=== PATIENT | female | born 1955 | race Caucasian/White ===

== ENCOUNTER 2017-02-04 13:53 | Outpatient (CLI) | payer MEDICARE ==
--- NOTE | 2017-02-08 17:04 | Mammography Report ---
DIGITAL SCREENING MAMMOGRAM: 02/04/2017 CLINICAL INDICATION: A 61-year-old nulliparous patient with family history of breast cancer, for scre ening. COMPARISON: 12/2014, 11/2013. TECHNIQUE: Routine CC and MLO projections were obtained of the breasts. FINDINGS: The breasts again demonstrate scattered fibroglandular densities bilaterally. There is a p ossible developing density in the right lower outer central breast. Further evaluation with spot comp ression views and possible ultrasound is recommended. Punctate, typically benign calcifications are p resent. No mammographically suspicious findings are identified in the left breast. IMPRESSION: INCOMPLETE EXAMINATION. RECOMMENDATION: ADDITIONAL EVALUATION OF THE RIGHT BREAST ABOVE. BIRADS CATEGORY 0-INCOMPLETE. STANDARD QUALIFYING STATEMENTS 1. This examination was reviewed with the aid of Computer-Aided Detection (CAD). 2. A negative or benign imaging report should not delay biopsy if clinically suspicious findings are present. Consider surgical consultation if warranted. More than 5% of cancers are not identified by i maging. 3. Dense breasts may obscure an underlying neoplasm. JOB #: [id number] EXT JOB #:[id number]
== END 2017-02-04 13:54 | disposition home or self-care (01) ==
LOC: DI.S 13:53
PROVIDERS: ATTEND Nurse Practitioner Family
DX: Z12.31 Encounter for screening mammogram for malignant neoplasm of breast (principal); R92.8 Other abnormal and inconclusive findings on diagnostic imaging of breast; Z80.3 Family history of malignant neoplasm of breast
CPT/HCPCS: 77067

== ENCOUNTER 2017-03-23 13:05 | Outpatient (CLI) | payer MEDICARE ==
--- NOTE | 2017-03-24 09:08 | DEXA Report ---
DEXA SCAN: 03/23/2017 CLINICAL INDICATION: Postmenopausal. TECHNIQUE: Dual energy x-ray absorptiometry (DXA) was performed on a [employer] system. Regions measured are the AP spine, femoral neck, and, if needed, forearm. COMPARISON: None. In accordance with the International Society for Clinical Densitometry (ISCD) guidelines, data from previous exams may be reanalyzed using current recommendations and techniques. This is done to allow a more accurate basis for comparison with the current study. FINDINGS: The data for the lumbar spine is as follows: REGION BMD (g/cm/cm) T-SCORE Z-SCORE L1 0.934 -1.6 0.0 L2 1.082 -1.0 0.6 L3 1.150 -0.4 1.2 L4 1.019 -1.5 0.1 TOTAL 1.048 -1.1 0.5 NOTE: All evaluable vertebrae are used for classification. The data for the hip is as follows: REGION BMD (g/cm/cm) T-SCORE Z-SCORE Neck 0.591 -3.2 -1.7 TOTAL 0.586 -3.3 -2.1 NOTE: The femoral neck or total proximal femur, whichever is lowest, is used for classification. IMPRESSION: THE WHO CLASSIFICATION BASED ON THE INTERNATIONAL REFERENCE STANDARD IS OSTEOPOROSIS. THE FRACTURE RISK IS HIGH. RECOMMENDATION: Patients with diagnosis of osteoporosis or osteopenia should have regular bone mineral density assessment. For those eligible for Medicare, routine testing is allowed once every 2 years. Testing frequency can be increased for patients who have rapidly progressing disease or for those who are receiving medical therapy to restore bone mass. COMMENT: World Health Organization (WHO) definitions for osteoporosis and osteopenia: NORMAL BMD: T-score at -1.0 or higher, fracture risk is low. OSTEOPENIA BMD: T-score between -1.0 and -2.5, fracture risk is increased. OSTEOPOROSIS BMD: T-score at -2.5 or lower, fracture risk high. National Osteoporosis Foundation recommends: 1. Obtain adequate dietary calcium (at least 1200 mg per day) and vitamin D (400 -800 international units per day). 2. Participate, as appropriate, in regular weightbearing and muscle- strengthening exercise. 3. Avoid tobacco use and reduce alcohol and caffeine intake. 4. For more detailed information see the website at www.NOF.org. MTDD
== END 2017-03-23 13:06 | disposition home or self-care (01) ==
LOC: DI 13:05
PROVIDERS: ATTEND Nurse Practitioner Family
DX: Z13.820 Encounter for screening for osteoporosis (principal); M81.0 Age-related osteoporosis without current pathological fracture
CPT/HCPCS: 77080

== ENCOUNTER 2017-03-23 13:24 | Outpatient (CLI) | payer MEDICARE ==
--- NOTE | 2017-03-23 16:52 | Mammography Report ---
DIGITAL DIAGNOSTIC RIGHT MAMMOGRAM: 03/23/2017 CLINICAL INDICATION: Possible developing density right lower outer breast. TECHNIQUE: Right true lateral and spot compression views. COMPARISON: 02/04/2017, 01/03/2015, 12/13/2013. The right breast again demonstrates scattered fibroglandular densities. The density in question diss ipates evenly on additional compression. No underlying mass or architectural distortion is identifie d. IMPRESSION: NEGATIVE EXAMINATION. RECOMMENDATION: ROUTINE ANNUAL SCREENING UNLESS OTHERWISE CLINICALLY INDICATED. BIRADS CATEGORY: 1, NEGATIVE. STANDARD QUALIFYING STATEMENTS 1. This examination was reviewed with the aid of Computed-Aided Detection (CAD). 2. A negative or benign imaging report should not delay biopsy if clinically suspicious findings are present. Consider surgical consultation if warranted. More than 5% of cancers are not identified b y imaging. 3. Dense breasts may obscure an underlying neoplasm. JOB #: [id number] EXT JOB #:
== END 2017-03-23 13:25 | disposition home or self-care (01) ==
LOC: DI 13:24
PROVIDERS: ATTEND Nurse Practitioner Family
DX: Z12.31 Encounter for screening mammogram for malignant neoplasm of breast (principal); Z13.820 Encounter for screening for osteoporosis; M81.0 Age-related osteoporosis without current pathological fracture
CPT/HCPCS: 77080; G0206

== ENCOUNTER 2017-03-31 14:11 | Outpatient (CLI) | payer MEDICARE ==
--- NOTE | 2017-04-01 09:11 | XRAY Report ---
THREE VIEW LUMBAR SPINE: 03/31/2017 CLINICAL INDICATION: Low back pain. FINDINGS: AP, lateral, and coned down views of the lumbar spine are compared to previous films of . Degenerative changes are stable. There is no evidence of interval fracture or subluxation. The bowel gas pattern appears unremarkable. IMPRESSION: STABLE MODERATE DEGENERATIVE CHANGES. NO EVIDENCE OF INTERVAL FRACTURE. JOB #: [id number] EXT JOB #:[id number]
== END 2017-03-31 14:12 | disposition home or self-care (01) ==
LOC: DI.S 14:11
PROVIDERS: ATTEND Nurse Practitioner Family
DX: M54.5 Low back pain (principal)
CPT/HCPCS: 72100

== ENCOUNTER 2019-07-20 01:34 | Outpatient (CLI) | payer MEDICARE | END 2019-07-20 01:35 | disposition EMS.NT | LOC: EMS 01:34 | PROVIDERS: ATTEND Surgery | DX: R42 Dizziness and giddiness (principal); F41.9 Anxiety disorder, unspecified; R06.02 Shortness of breath ==

== ENCOUNTER 2019-09-05 15:25 | Outpatient (CLI) | payer MEDICARE ==
[2019-09-05 17:55] LABS: ALBUMIN/GLOBULIN RATIO 1.3 (1.0-2.2); BILIRUBIN,DIRECT 0.3 mg/dL (0.1-0.5); BILIRUBIN,TOTAL 2.1 mg/dL (0.2-1.0); CALCIUM 10.5 mg/dL (8.5-10.3); CREATININE 0.9 mg/dL (0.4-1.0); TOTAL PROTEIN 8.9 g/dL (6.7-8.2)
== END 2019-09-05 15:26 | disposition home or self-care (01) ==
LOC: LAB.S 15:25
PROVIDERS: ATTEND Nurse Practitioner Family
DX: R74.8 Abnormal levels of other serum enzymes (principal); R17 Unspecified jaundice
CPT/HCPCS: 36415; 80053; 82247; 82248

== ENCOUNTER 2020-05-28 16:12 | Outpatient (CLI) | payer MEDICARE ==
--- NOTE | 2020-05-29 13:53 | Mammography Report ---
BILATERAL DIGITAL SCREENING MAMMOGRAM 3D/2D: 05/28/2020 CLINICAL: Routine screening. Comparison is made to exams dated: 03/23/2017 mammogram and 02/04/2017 mammogram - [facility]. There are scattered fibroglandular elements in both breasts. No significant masses, calcifications, or other findings are seen in either breast. There has been no significant interval change. IMPRESSION: NEGATIVE There is no mammographic evidence of malignancy. A 1 year screening mammogram is recommended. This exam was interpreted at Station ID: [id number]. NOTE: For mammograms, a report in lay terms will be sent to the patient. Approximately 15% of breast malignancies will not be visualized mammographically. In the management of a palpable breast mass, a negative mammogram must not discourage biopsy of a clinically suspicious lesion. Electronically Signed By: Alfred antoine/walt:05/28/2020 17:35:01 ACR BI-RADS Category 1: Negative 3341F PARENCHYMAL PATTERN: (A) - The breast(s) demonstrate(s) scattered fibroglandular densities. BI-RADS CATEGORY: (1) - 1 RECOMMENDATION: (ANNUAL) - Recommend routine annual screening mammography. [id number] 1 year screening LATERALITY: (B)
== END 2020-05-28 16:13 | disposition home or self-care (01) ==
LOC: DI 16:12
PROVIDERS: ATTEND Nurse Practitioner Family
DX: Z12.31 Encounter for screening mammogram for malignant neoplasm of breast (principal)
CPT/HCPCS: 77063; 77067

== ENCOUNTER 2022-05-20 13:43 | Outpatient (CLI) | payer MEDICARE ==
--- NOTE | 2022-05-22 15:18 | Mammography Report ---
BILATERAL DIGITAL SCREENING MAMMOGRAM 3D/2D: 05/20/2022 CLINICAL: Routine screening. Comparison is made to exams dated: 05/28/2020 mammogram, 03/23/2017 mammogram, 02/04/2017 mammogram, mammogram, and 12/13/2013 mammogram - [facility]. There are scattered areas of fibroglandular density in both breasts (category b / 25%-50% glandular t issue). No significant masses, calcifications, or other findings are seen in either breast. There has been no significant interval change. IMPRESSION: NEGATIVE There is no mammographic evidence of malignancy. A 1 year screening mammogram is recommended. Based on the Tyrer Cuzick model (a risk assessment model) the patients lifetime risk is 13.6% and he r 10 year risk is 6.9%. According to the ACR, ACS, and NCCN guidelines, an annual breast MRI exam mario ng with mammogram is recommended if the patients lifetime risk is 20% or greater. This exam was interpreted at Station ID: [id number]. NOTE: For mammograms, a report in lay terms will be sent to the patient. Approximately 15% of breast malignancies will not be visualized mammographically. In the management of a palpable breast mass, a negative mammogram must not discourage biopsy of a clinically suspicious lesion. Electronically Signed By: Kwaku stephens/walt:05/21/2022 16:33:30 ACR BI-RADS Category 1: Negative 3341F PARENCHYMAL PATTERN: (A) - The breast(s) demonstrate(s) scattered fibroglandular densities. BI-RADS CATEGORY: (1) - 1 RECOMMENDATION: (ANNUAL) - Recommend routine annual screening mammography. [id number] 1 year screening LATERALITY: (B)
== END 2022-05-20 13:44 | disposition home or self-care (01) ==
LOC: DI 13:43
PROVIDERS: ATTEND Nurse Practitioner Family
DX: Z12.31 Encounter for screening mammogram for malignant neoplasm of breast (principal)

== ENCOUNTER 2022-05-20 13:45 | Outpatient (CLI) | payer MEDICARE ==
--- NOTE | 2022-05-20 16:33 | DEXA Report ---
PROCEDURE: Dexa Spine and/or Hip INDICATIONS: OSTEOPOROSIS TECHNIQUE: Dual energy x-ray absorptiometry (DXA) was performed on a [employer] System. Regions measur ed are the AP Spine, femoral neck, and if needed forearm. COMPARISON: DEXA 03/23/2017. FINDINGS: Lumbar Spine: Bone Mineral Density 1.061 g/cm/cm, T score -1.0, normal Left Hip: Bone Mineral Density 0.608 g/cm/cm, T score -3.2, osteoporosis Left Femoral Neck: Bone Mineral Density 0.658 g/cm/cm, T score -2.7, osteoporosis Comparison the prior exam cannot be performed. Overall findings are similar the prior DEXA from 2017. (T score greater or equal to -1.0: NORMAL) (T score from -1.1 to -2.4: OSTEOPENIA) (T score less than or equal to -2.5 to: OSTEOPOROSIS) Impression: Osteoporosis at the left hip. Patients with diagnosis of osteoporosis or osteopenia should have regular bone mineral density assess ment. For those eligible for Medicare, routine testing is allowed once every 2 years. Testing frequ ency can be increased for patients who have rapidly progressing disease or for those who are receivin g medical therapy to restore bone mass. Reviewed by: Bj Mcintyre MD on 05/20/2022 3:31 PM [facility] Approved by: Bj Mcintyre MD on 05/20/2022 3:31 PM [facility] Station ID: [id number]
== END 2022-05-20 13:46 | disposition home or self-care (01) ==
LOC: DI 13:45
PROVIDERS: ATTEND Nurse Practitioner Family
DX: M81.0 Age-related osteoporosis without current pathological fracture (principal)

== ENCOUNTER 2023-07-21 07:13 | Outpatient (CLI) | payer MEDICARE | END 2023-07-21 07:14 | disposition critical access hospital (66) | LOC: EMS 07:13 | DX: R07.9 Chest pain, unspecified (principal); R25.1 Tremor, unspecified; R06.4 Hyperventilation | CPT/HCPCS: A0425; A0427 ==

== ENCOUNTER 2023-07-21 07:45 | Emergency (ER) | payer MEDICARE ==
--- NOTE | 2023-07-21 07:46 | ED Physician Documentation ---
PD HPI DYSPNEA - Stated complaint Stated Complaint: CP - History obtained from History obtained from: Patient - History of Present Illness Timing - onset: Today Timing - duration: Minutes, Hours (had feeling of anxiety and chest tightness with heart feeling going fast that lasted for 1/2 hour to an our. Called EMS. They noted normal rhythm and rate. Pt stated was starting to feel better then but still anxious and shaky.) Timing - details: Abrupt onset, Now resolved (though still having feeling of shakiness and anxious. But not feeling the chest tightness nor heart racing feelings.) Inciting event(s): No: URI Associated symptoms: No: Fever, Cough, Wheezing Similar symptoms before: Has not had sx before Recently seen: Not recently seen Review of Systems Constitutional: denies: Fever, Chills Nose: denies: Rhinorrhea / runny nose, Congestion Throat: denies: Sore throat Cardiac: reports: Chest pain / pressure, Palpitations (feeling heart rate fast this morning. Has had feeling of skips/palpitations occasional otherwise.). denies: Pedal edema, Calf pain Respiratory: denies: Cough PD PAST MEDICAL HISTORY - Past Medical History Cardiovascular: None Respiratory: None Endocrine/Autoimmune: None - Allergies Allergies/Adverse Reactions: Allergies Allergy/AdvReac Type Severity Reaction Status Date / Time aspirin AdvReac Unknown Verified 07/21/23 07:54 Penicillins AdvReac Unknown Verified 07/21/23 07:54 - Living Situation Living Situation: reports: Alone Living Arrangement: reports: At home - Social History Does the pt smoke?: No Does the pt drink ETOH?: No Does the pt have substance abuse?: No PD ED PE NORMAL - Vitals Vital signs reviewed: Yes - General General: Alert and oriented X 3, Well developed/nourished, Other (appears very anxious and tremorous/shaky that can stop when she is distracted. ) - Neck Neck: Supple, no meningeal sign, No adenopathy - Cardiac Cardiac: RRR, No murmur - Respiratory Respiratory: No respiratory distress, Clear bilaterally - Abdomen Abdomen: Soft, Non tender - Derm Derm: Normal color, Warm and dry - Extremities Extremities: No edema, No calf tenderness / cord - Neuro Neuro: Alert and oriented X 3, No motor deficit, Normal speech Results - Vitals Vitals: Oxygen O2 Source Room air - EKG (time done) 08:06 EKG releavant findings:: EKG personally interpreted by author of this note. Relevant findings are: Rate: Rate (enter#) (87) Rhythm: NSR, Other (occasional PACs.) Clark: Normal Intervals: Normal ID QRS: Normal Ischemia: Normal ST segments. No: ST elevation c/w ischemia, ST depression Compare to prior EKG: Old EKG unavailable - Labs Labs: Laboratory Tests 07/21/23 07/21/23 07/21/23 08:18 08:18 08:18 WBC 5.1 RBC 3.55 L Hgb 11.4 L Hct 34.2 L MCV 96.3 MCH 32.1 H MCHC 33.3 RDW 13.0 Plt Count 184 MPV 9.1 Neut # (Auto) 3.6 Lymph # (Auto) 1.1 L [place] # (Auto) 0.3 Eos # (Auto) 0.1 Baso # (Auto) 0.1 Absolute Nucleated RBC 0.00 Nucleated RBC % 0.0 Sodium 140 Potassium 3.8 Chloride 106 Carbon Dioxide 26 Anion Gap 8.0 BUN 16 Creatinine 1.0 Estimated GFR (MDRD) 55 L Glucose 118 H Calcium 10.0 Magnesium 1.7 Total Bilirubin 1.2 H AST 32 ALT 34 Alkaline Phosphatase 81 Troponin I High Sens 4.7 B-Natriuretic Peptide 47 Total Protein 7.5 Albumin 4.5 Globulin 3.0 Albumin/Globulin Ratio 1.5 Lipase 85 H TSH 3.06 - Rads (name of study) chest xray Relevant Findings:: Prelim report reviewed (no acute process), EMP independent interpretation of test PD Medical Decision Making - ED course Complexity details: reviewed results, considered differential (had feeling of fast heart rate. Is normal now but does not exclude irregular prior. EMS noted regular. Can also be anxiety. Does not seem PE, pneumonia, PTX. Labs exclude IN/CHF. CXR clear. ), d/w patient Departure - Departure Disposition: 01 Home, Self Care Clinical Impression: Heart rate fast Condition: Stable Record reviewed to determine appropriate education?: Yes Instructions: ED Palpitations Comments: Your heart rhythm is normal here. It is unclear what irregularity was happening before, skipping or extra beats or fast rhythm. As you suggest, it probably does relate to hydration and fatigue and lack of sleep. Try to stay well-hydrated. We did check basic blood test here of your electrolytes, blood sugar, kidney function and these are in the normal range. Your thyroid screen is normal as well. On chest x-ray and blood tests as well as your EKG, there is no signs of heart attack or heart failure. Follow-up with your primary care or clinic if you have repeated episodes similar to this. If so we can set up a portable wearable monitor that records your heart rhythm over the course of the week to see what these episodes are. Given that much of the time symptoms like this are solitary and not recurrent, I would just see if you have any more episodes before embarking any more testing. Avoid stimulants such as caffeine. Again stay well-hydrated. Forms: PCP List Discharge Date/Time: 07/21/23 09:54
[2023-07-21 08:23] LABS: BASOPHILS # (AUTO) 0.1 10^3/uL (0.0-0.1); EOSINOPHILS # (AUTO) 0.1 10^3/uL (0.0-0.7); EOSINOPHILS % (AUTO) 1.8 %; HCT - HEMATOCRIT 34.2 % (37.0-47.0); HGB - HEMOGLOBIN 11.4 g/dL (12.0-16.0); LYMPHOCYTES # (AUTO) 1.1 10^3/uL (1.5-3.5); LYMPHOCYTES % (AUTO) 20.5 %; MEAN CORPUSCULAR HEMOGLOBIN 32.1 pg (27.0-31.0); MEAN CORPUSCULAR HGB CONC 33.3 g/dL (32.0-36.0); MEAN CORPUSCULAR VOLUME 96.3 fL (81.0-99.0); MEAN PLATELET VOLUME 9.1 fL (7.9-10.8); MONOCYTES # (AUTO) 0.3 10^3/uL (0.0-1.0); MONOCYTES % (AUTO) 5.9 %; NEUTROPHILS # (AUTO) 3.6 10^3/uL (1.5-6.6); NEUTROPHILS % (AUTO) 70.4 %; PLT - PLATELET COUNT 184 10^3/uL (130-450); RED BLOOD COUNT 3.55 10^6/uL (4.20-5.40); WHITE BLOOD COUNT 5.1 x10^3/uL (4.8-10.8)
--- NOTE | 2023-07-21 08:37 | XRAY Report ---
PROCEDURE: Chest 1V INDICATIONS: chest pain TECHNIQUE: One view of the chest was acquired. COMPARISON: None. FINDINGS: Surgical changes and devices: None. Lungs and pleura: No pleural effusions or pneumothorax. Lungs are clear. Mediastinum: Mediastinal contours appear normal. Heart size is mildly prominent. Bones and chest wall: No suspicious bony lesions. Overlying soft tissues appear unremarkable. IMPRESSION: No acute cardiopulmonary process. Reviewed by: Tamika Soliman MD on 07/21/2023 8:35 AM [facility] Approved by: Tamika Soliman MD on 07/21/2023 8:35 AM [facility] Station ID: [id number]
[2023-07-21 08:44] VITALS: BP 136/84; O2SAT 100
[2023-07-21 08:46] LABS: ALBUMIN 4.5 g/dL (3.2-5.5); ALBUMIN/GLOBULIN RATIO 1.5 (1.0-2.2); BILIRUBIN,TOTAL 1.2 mg/dL (0.2-1.0); MAGNESIUM 1.7 mg/dL (1.7-2.3); POTASSIUM 3.8 mmol/L (3.5-4.5); TOTAL PROTEIN 7.5 g/dL (6.4-8.9)
[2023-07-21 08:51] LABS: TROPONIN I HIGH SENSITIVITY 4.7 ng/L (2.3-14.8)
[2023-07-21 09:00] LABS: THYROID STIMULATING HORMONE 3.06 uIU/mL (0.34-5.60)
[2023-07-21] MEDS ORDERED: IBUPROFEN 600 MG TABLET PO STA (09:04)
[2023-07-21] MEDS ORDERED: IBUPROFEN 200 MG/10 ML UDC PO STA (09:39)
== END 2023-07-21 09:54 | disposition home or self-care (01) ==
LOC: EDUNIT# → ED 07:45
DX: R00.0 Tachycardia, unspecified (principal); I49.1 Atrial premature depolarization
CPT/HCPCS: 36415; 71045; 80053; 83690; 83735; 83880; 84443; 84484; 85025; 93005; 99283; 99284; A9270

== ENCOUNTER 2023-11-18 15:27 | Outpatient (CLI) | payer MEDICARE ==
--- NOTE | 2023-11-18 20:36 | DEXA Report ---
PROCEDURE: Dexa Spine and/or Hip INDICATIONS: OSTEOPOROSIS TECHNIQUE: Dual energy x-ray absorptiometry (DXA) was performed on a [employer] System. Regions measur ed are the AP Spine, femoral neck, and if needed forearm. COMPARISON: DEXA 05/20/2022. FINDINGS: Lumbar Spine: Bone Mineral Density: 1.093 g/cm/cm, T score: -0.7. Since the most recent prior study, there has bee n a statistically significant increase in bone mineral density by 3.0 percent. Left Femoral Neck: Bone Mineral Density: 0.668 g/cm/cm, T score: -2.7. Left Hip: Bone Mineral Density: 0.628 g/cm/cm, T score: -3.0. There has been no statistically significant durham e in bone mineral density since the prior study. (T score greater or equal to -1.0: NORMAL) (T score from -1.1 to -2.4: OSTEOPENIA) (T score less than or equal to -2.5 to: OSTEOPOROSIS) Impression: By WHO criteria, this patient has osteoporosis. Interval statistical increase in bone mineral density of the lumbar spine. No statistical interval change in bone mineral density of the hip. Patients with diagnosis of osteoporosis or osteopenia should have regular bone mineral density assess ment. For those eligible for Medicare, routine testing is allowed once every 2 years. Testing frequ ency can be increased for patients who have rapidly progressing disease or for those who are receivin g medical therapy to restore bone mass. Reviewed by: Bj Mcintyre MD on 11/18/2023 8:35 PM PDT Approved by: Bj Mcintyre MD on 11/18/2023 8:35 PM PDT Station ID: [id number]
== END 2023-11-18 15:28 | disposition home or self-care (01) ==
LOC: DI 15:27
PROVIDERS: ATTEND Nurse Practitioner Family
DX: M81.0 Age-related osteoporosis without current pathological fracture (principal)